=== PATIENT | female | born 2000 ===

== ENCOUNTER 2023-02-24 06:34 | Inpatient (IN) | payer BC, SELFPAY ==
[2023-02-24] VITALS (34 sets, daily range): BP systolic 103–129; BP diastolic 51–85; PULSE 63–179; RESP 16–20; TEMP 36.6–37.2; O2SAT 91–98; BMI 34.2
[2023-02-24 06:30] LABS: Amnisure Rom* POSITIVE
--- NOTE | 2023-02-24 07:47 | PM.OBHPLI ---
OB - H&P: HPI Labor/Induction History of Present Illness Date Seen: 02/24/23 Chief Complaint: The patient is a 22 year old 1 para 0 at 39 weeks gestation by LMP and 1st trimester US, who presents with SROM. Chief complaint: Unscheduled OB Narrative: Zofia Vazquez is a 22 year old female who has had an uncomplicated to date with the exception of mild anemia, on iron. She has felt well through her . She was seen yesterday in the clinic and had a negative amnisure due to a trickle of fluid earlier in the day. She had no further leaking through the day and no contractions until this morning. She went to the bathroom at 4 am today and had a gush of clear fluid on her way. Not really noticing any contractions. No bleeding. Has had good movement. History of Present Dating criteria: based on LMP care: good care Ultrasounds: normal 1st trimester US and normal mid trimester US complications: other complications comment: Mild anemia Labs Blood type: A (+) positive Rubella: immune RPR/VDLR: nonreactive GBS status: negative HBsAG: negative Review of Systems Status of ROS: Reports: 10 or more systems reviewed and unremarkable except as noted in History and below Meds Home Medications and Allergies Home Medications Medication Instructions Recorded Confirmed Type docosahexaenoic acid PO 02/24/23 History ferrous gluconate 324 mg (38 mg 324 mg PO DAILY 02/24/23 02/24/23 History iron) tablet Allergies Allergy/AdvReac Type Severity Reaction Status Date / Time No Known Drug Allergies Allergy Verified 02/24/23 07:04 OB - H&P: Exam Physical Exam: Vital signs: Temp Pulse Resp BP Pulse Ox 97.9 F 77 16 122/85 97 02/24/23 07:15 02/24/23 07:20 02/24/23 07:15 02/24/23 07:20 02/24/23 06:13 Constitutional: Constitutional: no acute distress Routine Respiratory Exam: Respiratory: Present CTA bilaterally; Absent crackles Routine Cardiovascular Exam: Cardiovascular: RRR, S1 and S2 Detailed Labor and Delivery Exam: Dilation (cm): 3 (per RN) Effacement (%): 60 Tachysystole: No Fetus (Single): Amniotic Membrane Status: SROM Amniotic Membrane Fluid Description: Clear Heart Rate Baseline: 130 Monitor Accelerations: Present Monitor Decelerations: None OB - Problem Based A/P Additional Plan (1) SROM (spontaneous rupture of membranes): Status: Acute Plan Vertex position confirmed by ultrasound. EFW 3500 g on [place]. Only irregular contraction on toco. Patient wants to avoid medications if possible. Not phill regularly yet. Would plan to give her 6 hours from rupture and if still not phill, would recommend starting low dose pitocin. Patient does not plan on epidural. Plan expectant management. Delivery/Labor/Induction Plan Plan: expectant management
--- NOTE | 2023-02-24 16:48 | P.OBPN_ITS ---
Subjective Date Seen: 02/24/23 Narrative: She has made slow, steady progress through the day. She has wanted to avoid interventions. She has been checked twice today and each time has made change. She is getting quite a bit more uncomfortable. Feeling more rectal pressure. Objective Vital Signs: Last Vital Signs Temp 98.8 F 02/24/23 15:46 Pulse 68 02/24/23 14:46 Resp 16 02/24/23 15:46 BP 107/62 02/24/23 14:46 Pulse Ox 97 02/24/23 06:13 Pelvic Exam Dilation (cm): 5.5 Effacement (%): 80 Comments: per RN Contractions Monitor mode: External Contraction Frequency: q2-4 min Contraction pattern: Regular Contraction intensity: Moderate Assessment Status: Category l Heart Rate Baseline: 140 Humid System Operator Variability: Moderate (6-25) Monitor Accelerations: Present Monitor Decelerations: None Plan Plan: She is continuing to make change but slowly. She has a bulging bag but baby's head is not well applied in between contractions. Discussed AROM with parents and they want to wait right now. She wants to do a 1 time dose of fentanyl for pain control. Discussed risks and benefits. Will wait on any other intervention at this time. She will consider an epidural but wants to wait for now. Anticipate .
[2023-02-24] MEDS: fentaNYL 100 MCG/2 ML inj IVP (17:11)
[2023-02-24] MEDS: SODIUM CHLORIDE 0.9 % (FLUSH) 10 ML SYRINGE IVF (17:12)
--- NOTE | 2023-02-24 21:15 | P.OBPN_ITS ---
Subjective Date Seen: 02/24/23 Narrative: Patient getting quite a bit more uncomfortable. Has been progressing without augmentation. Reported to have a tight, bulging bag. Objective Vital Signs: Last Vital Signs Temp 98.4 F 02/24/23 20:04 Pulse 96 02/24/23 20:04 Resp 20 02/24/23 20:04 BP 103/61 02/24/23 20:04 Pulse Ox 97 02/24/23 18:00 Pelvic Exam Dilation (cm): 9 Effacement (%): 90 Station: -2 Comments: Bulging forebag present. AROM performed with clear fluid return. Contractions Monitor mode: External Contraction pattern: Regular Contraction intensity: Moderate Assessment Assessment: active labor Status: Category l Heart Rate Baseline: 140 [facility] Variability: Moderate (6-25) Monitor Accelerations: Present Monitor Decelerations: None Plan Plan: AROM performed. Likely will be complete soon. anticipated soon. Manage expectantly.
[2023-02-25] VITALS (20 sets, daily range): BP systolic 102–123; BP diastolic 55–71; PULSE 83–117; RESP 16–20; TEMP 37–37.4; O2SAT 98–100
--- NOTE | 2023-02-25 01:03 | PM.OBPNL ---
Subjective Date Seen: 02/25/23 Narrative: Continues to make slow progress. She was at 9 cm for about 3 hours with a tight ring that remained. Continued to have contractions every 2 minutes. Attempted pushing past the ring but that was not successful. Objective Vital Signs: Last Vital Signs Temp 98.9 F 02/25/23 00:01 Pulse 99 02/25/23 00:01 Resp 20 02/25/23 00:01 BP 117/64 02/25/23 00:01 Pulse Ox 97 02/24/23 18:00 Pelvic Exam Dilation (cm): 10 Effacement (%): 100 Station: +1 Contractions Monitor mode: External Contraction pattern: Regular Contraction intensity: Moderate Assessment Status: Category l Heart Rate Baseline: 140 Elevated Work Platform Operator Variability: Moderate (6-25) Monitor Accelerations: Present Monitor Decelerations: None Tracing Comments: Category 1 tracing Plan Plan: Dr. Rosales in OB consulted due to persistent rim and she recommended attempting pushing past or adding low dose pitocin. We elected to try pushing past again and when I went to recheck her, the lip had resolved and she was complete. She is now pushing with expectation of soon.
[2023-02-25] MEDS: ACETAMINOPHEN 500 MG TABLET 1000 MG PO (01:54)
--- NOTE | 2023-02-25 02:40 | W.PM.VAGDEL1 ---
Procedure Delivery date: 02/25/23 Procedure Done: Global Intrapartal Events: ROM >18 Hours Delivery monitor: external FHT Route of delivery: Laceration description: None Anesthesia type: None Disposition: floor Narrative: 1st stage: SROM at home at 0400. Started phill at that time. Wanted to avoid augmentation. Progressed slowly through the day until she was found to be complete at 0047 on 02/25. OB was consulted due to persistent tight cervical dilation of 9 cm. She improved and was able to start pushing when found to be complete. Tracing was category 1 through nearly entire 1st stage. 2nd stage: Began pushing at 0047. No anesthesia. Pushed well and delivered a liveborn female via the OA position at 0122. Tracing essentially category 1 through 2nd stage. 3rd stage: Tone immediately noted to be very firm. Held off on pitocin per mom's wishes. No lacerations. Placenta delivered spontaneously at 0129. Infant Infant Gender: Female presentation: vertex Placental Delivery Description: Spontaneous Cord Description: 3 Vessels
[2023-02-25] MEDS: IBUPROFEN 600 MG TABLET PO (08:15)
--- NOTE | 2023-02-25 09:12 | P.DS_ITS ---
DS: Providers Provider Date Seen: 02/25/23 Date of admission: 02/24/23 06:34 Primary care physician: Kym Rosa MD Admitting Clinician: Fe Aguilera MD Attending Physician on discharge: Doug Hooper MD DS: Diagnosis Discharge Diagnosis (1) Vaginal delivery: Status: Acute Exam Const: Vital Signs, click to edit/add: Vital Signs - 24 hr 02/24/23 09:28 02/24/23 10:45 02/24/23 11:30 Temperature 97.8 F 99 F 98.3 F Pulse Rate Pulse Rate [Blood Pressure Cuff] Respiratory Rate 16 16 16 Blood Pressure Blood Pressure [Ri ght Arm] Pulse Oximetry Oxygen Delivery Me thod 02/24/23 11:41 02/24/23 12:31 02/24/23 13:06 Temperature 98.4 F Pulse Rate 75 88 Pulse Rate [Blood Pressure Cuff] Respiratory Rate 16 Blood Pressure 105/57 L 120/74 Blood Pressure [Ri ght Arm] Pulse Oximetry Oxygen Delivery Me thod 02/24/23 14:01 02/24/23 14:46 02/24/23 14:47 Temperature 98.6 F 98.2 F Pulse Rate 68 Pulse Rate [Blood Pressure Cuff] Respiratory Rate 16 16 Blood Pressure 107/62 Blood Pressure [Ri ght Arm] Pulse Oximetry Oxygen Delivery Me thod 02/24/23 15:46 02/24/23 17:10 02/24/23 17:16 Temperature 98.8 F 98.4 F Pulse Rate 63 Pulse Rate [Blood Pressure Cuff] Respiratory Rate 16 16 Blood Pressure 111/61 Blood Pressure [Ri ght Arm] Pulse Oximetry Oxygen Delivery Me thod 02/24/23 17:20 02/24/23 17:20 02/24/23 17:25 Temperature Pulse Rate Pulse Rate [Blood Pressure Cuff] Respiratory Rate Blood Pressure Blood Pressure [Ri ght Arm] Pulse Oximetry 91 92 95 Oxygen Delivery Me thod 02/24/23 17:30 02/24/23 17:35 02/24/23 17:40 Temperature Pulse Rate Pulse Rate [Blood Pressure Cuff] Respiratory Rate Blood Pressure Blood Pressure [Ri ght Arm] Pulse Oximetry 96 97 97 Oxygen Delivery Me thod 02/24/23 17:45 02/24/23 17:50 02/24/23 17:55 Temperature Pulse Rate Pulse Rate [Blood Pressure Cuff] Respiratory Rate Blood Pressure Blood Pressure [Ri ght Arm] Pulse Oximetry 96 97 97 Oxygen Delivery Me thod 02/24/23 18:00 02/24/23 18:00 02/24/23 19:04 Temperature 98.1 F Pulse Rate 80 Pulse Rate [Blood Pressure Cuff] Respiratory Rate 16 Blood Pressure 129/69 Blood Pressure [Ri ght Arm] Pulse Oximetry 97 Oxygen Delivery Me thod 02/24/23 19:04 02/24/23 20:04 02/24/23 20:04 Temperature 98.3 F 98.4 F Pulse Rate 96 Pulse Rate [Blood Pressure Cuff] Respiratory Rate 20 Blood Pressure 103/61 Blood Pressure [Ri ght Arm] Pulse Oximetry Oxygen Delivery Me thod 02/24/23 21:21 02/24/23 21:49 02/24/23 23:02 Temperature 98 F Pulse Rate 179 H 73 Pulse Rate [Blood Pressure Cuff] Respiratory Rate Blood Pressure 111/66 104/51 L Blood Pressure [Ri ght Arm] Pulse Oximetry Oxygen Delivery Me thod 02/24/23 23:02 02/25/23 00:01 02/25/23 00:01 Temperature 98 F 98.9 F Pulse Rate 99 Pulse Rate [Blood Pressure Cuff] Respiratory Rate 18 20 Blood Pressure 117/64 Blood Pressure [Ri ght Arm] Pulse Oximetry Oxygen Delivery Me thod 02/25/23 01:27 02/25/23 01:30 02/25/23 01:30 Temperature 99.3 F Pulse Rate 117 H 103 H Pulse Rate [Blood Pressure Cuff] 103 H Respiratory Rate 18 Blood Pressure 123/69 118/64 Blood Pressure [Ri ght Arm] 118/64 Pulse Oximetry Oxygen Delivery Me thod 02/25/23 01:31 02/25/23 01:36 02/25/23 01:45 Temperature Pulse Rate Pulse Rate [Blood Pressure Cuff] 104 H Respiratory Rate 18 Blood Pressure Blood Pressure [Ri ght Arm] 116/62 Pulse Oximetry 99 100 100 Oxygen Delivery Me thod 02/25/23 01:46 02/25/23 02:00 02/25/23 02:01 Temperature Pulse Rate 104 H 89 Pulse Rate [Blood Pressure Cuff] 89 Respiratory Rate 16 Blood Pressure 116/62 107/55 L Blood Pressure [Ri ght Arm] 107/55 L Pulse Oximetry Oxygen Delivery Me thod 02/25/23 02:15 02/25/23 02:16 02/25/23 02:30 Temperature Pulse Rate 83 Pulse Rate [Blood Pressure Cuff] 83 84 Respiratory Rate 18 16 Blood Pressure 113/59 L Blood Pressure [Ri ght Arm] 113/59 L 110/57 L Pulse Oximetry Oxygen Delivery Me thod 02/25/23 02:31 02/25/23 02:45 02/25/23 02:46 Temperature Pulse Rate 84 111 H Pulse Rate [Blood Pressure Cuff] 111 H Respiratory Rate 18 Blood Pressure 110/57 L 110/66 Blood Pressure [Ri ght Arm] 110/66 Pulse Oximetry Oxygen Delivery Me thod 02/25/23 03:00 02/25/23 03:01 02/25/23 03:15 Temperature Pulse Rate 114 H Pulse Rate [Blood Pressure Cuff] 114 H 103 H Respiratory Rate 18 16 Blood Pressure 109/59 L Blood Pressure [Ri ght Arm] 109/59 L 102/59 L Pulse Oximetry Oxygen Delivery Me thod 02/25/23 03:16 02/25/23 08:30 Temperature 98.6 F Pulse Rate 103 H Pulse Rate [Blood Pressure Cuff] 94 Respiratory Rate 18 Blood Pressure 102/59 L Blood Pressure [Ri ght Arm] 104/71 Pulse Oximetry 98 Oxygen Delivery Me thod Room Air Common normals: no apparent distress : Uterus: U/2 and firm Lochia: scant OB - DS: Summary Hospital Course Hospital Course: The patient is a 22 year old at 39.1 weeks gestation that was admitted to the Center on 02/24/23 for SROM. She had an uncomplicated vaginal delivery. She delivered a viable female . She is breast/bottle feeding. the patient has done well. Peripartum Data Infant delivery method: Vaginal Laceration description: None Infant Gender: Female Time Spent with Patient Time attestation: Total time spent providing and/or coordinating discharge services: Time spent: Less than 30 minutes Discharge Plan Discharge Disposition: Home, Self-Care Date of Admission: 02/24/23 06:34 Attending Provider on Discharge: Doug Hooper Primary Care Provider: Kym Rosa I Condition: Stable Anticipated Discharge Date/Time: 02/25/23 07:31 Discharge Medications: No Action ferrous gluconate 324 mg (38 mg iron) tablet 324 mg PO DAILY docosahexaenoic acid [ DHA] 1 cap PO DAILY Discharge Orders: Discharge Order (Routine); Ordered 02/25/23 Ordered By: Doug Hooper Patient Education: OB Vaginal/Breast Feeding Activity Level: Activity as Tolerated Discharge Diet: Regular Follow Up Appointments: Kym Rosa MD [Primary Care Provider] - [facility] Discharge Comments: Discharging early to go with baby being transferred to NICU
== END 2023-02-25 09:05 | disposition home or self-care (01) | DRG 560 ==
LOC: OB OUT 06:34 → OB 06:34
PROVIDERS: Admitting Provider Family Medicine; PCP Family Medicine; Visit Provider Surgery
DX: O99.02 Anemia complicating childbirth (principal); D64.9 Anemia, unspecified; Z3A.39 39 weeks gestation of pregnancy; Z37.0 Single live birth
CPT/HCPCS: 84112; A9270; J3010